=== PATIENT | female | born 1990 | race Caucasian/White ===

== ENCOUNTER 2017-04-04 18:05 | Emergency (ER) | payer SELFPAY ==
[~2017-04-04 18:05] MED LIST: MELO7.5 PO; ULTR50TA PO
--- NOTE | 2017-04-04 18:30 | PD ---
Physical Exam Time Seen by Provider: 18:29 Narrative 26 year old female presents to ED for evaluation of R hand swelling; began 3 days ago. Pt reports this has happened before with no preceding injury. Denies IVDA. Denies trauma. Pt states pain is exacerbated with movement. No fever or chills. No others symptoms Data Data Last Documented VS Vital Signs Date Time Temp Pulse Resp B/P (MAP) Pulse Ox O2 Delivery O2 Flow Rate FiO2 04/04/17 20:24 04/04/17 18:32 97.1 93 18 97 Room Air Orders Orders Hand, Complete ([id number]) (04/04/17 ) Dexamethasone Inj (Decadron Inj) (04/04/17 19:45) Splint Or Brace Apply/Monitor (04/04/17 19:44) MDM Medical Record Reviewed: Yes Supervised Visit with KATERIN: No Scripts Diclofenac Sodium DR (Diclofenac Sodium DR) 75 Mg Tabdr 75 MG PO BID, #20 TAB 0 Refills Prov: Re Crouch MD 04/04/17 Condition: Stable Erika Olmedo Apr 04, 2017 18:30
[2017-04-04 18:32] VITALS: BP 124/79; PULSE 93; RESP 18; TEMP 97.1; O2SAT 97
[2017-04-04] MEDS ORDERED: DEXAMETHASONE SOD PHOS 20 MG/5 ML VIAL IM ONE (19:45)
[2017-04-04] MEDS ORDERED: DICL75TA PO (19:46)
--- NOTE | 2017-04-04 19:50 | PD ---
HPI Chief Complaint: Injury Time Seen by Provider: 19:40 Travel History International Travel<30 days: No Contact w/Intl Traveler<30days: No Traveled to known affect area: No History of Present Illness HPI 26-year-old [id number] female presents emergency department with complaints of right hand pain and swelling over last 3 days. She states that this has happened several times over last few years. Etiology is unclear. No history trauma. She denies any numbness or tingling. She states pain is global in her hand. There is no one area which is worse than the other. She does not recall having any injury or any repetitive activity. She has not seen a primary care doctor. She states that she follow-up with her family doctor years ago but no determination was made at that time for pain. PFSH Past Medical History Medical History: Denies Significant Hx Immunizations Current: Yes Tetanus Vaccination: Unknown Influenza Vaccination: Yes ?: Unknown Menopausal: No : 3 Para: 3 Past Surgical History Section: Yes (X3) Other Surgery: Yes (C SECTION X3) Social History Alcohol Use: No Tobacco Use: No Substance Use: No Allergies-Medications (Allergen,Severity, Reaction): Coded Allergies: No Known Allergies (Verified , 04/04/17) Reported Meds & Prescriptions Reported Meds & Active Scripts Active Diclofenac Sodium DR (Diclofenac Sodium) 75 Mg Tabdr 75 Mg PO BID Mobic 7.5 Mg Tab (Meloxicam) 7.5 Mg Tab 7.5 Mg PO DAILY one po daily for inflammation. Reported Ultram (Tramadol HCl) 50 Mg Tab 50 Mg PO Q4H PRN Review of Systems Except as stated in HPI: all other systems reviewed are Neg Physical Exam Narrative GENERAL: This is a well-nourished, well-developed patient, in no apparent distress. SKIN: No rashes, ecchymoses or lesions. Warm and dry. HEAD: Atraumatic. Normocephalic. EYES: PERRL, EOMI, no discharge or injection. No scleral icterus. EARS: Clear NOSE: Nasal turbinates appear normal. THROAT: Mucosa pink and moist. Airway patent. NECK: Trachea midline. supple, moves head freely. LUNGS: Clear to auscultation. CV: Regular in rhythm. ABDOMEN: Soft nontender. EXT: No clubbing cyanosis. Examination the right hand reveals mild swelling diffusely in the hand. She has limited flexion and extension due to pain. She has intact sensation with good Refill. Intact median/ulnar/renal nurse. There is no pain in the wrist, elbow or shoulder. The skin is intact. The skin is warm. There is no abnormal color. Data Data Last Documented VS Vital Signs Date Time Temp Pulse Resp B/P (MAP) Pulse Ox O2 Delivery O2 Flow Rate FiO2 04/04/17 18:32 97.1 93 18 124/79 (94) 97 Room Air Orders Orders Hand, Complete ([id number]) (04/04/17 ) Dexamethasone Inj (Decadron Inj) (04/04/17 19:45) Splint Or Brace Apply/Monitor (04/04/17 19:44) MDM Medical Decision Making Medical Screen Exam Complete: Yes Emergency Medical Condition: Yes Medical Record Reviewed: Yes Interpretation(s) Right hand: Negative for acute bony injury. Differential Diagnosis MDM: High Differential diagnoses: Fracture, sprain, strain, dislocation, contusion, neurovascular injury, autoimmune Narrative Course The patient has pain and swelling to the right hand without injury. She has had this several times in the past over last several years. Etiology is unclear. Patient's advised to follow-up with a primary care doctor or orthopedist for further testing. Patient's given Decadron 10 mg IM and prescription for diclofenac. Ashutosh wrap applied. This is right hand pain and swelling Diagnosis Primary Impression: right hand pain and swelling Patient Instructions: General Instructions Departure Forms: Tests/Procedures, Work Release Special Instructions: No use of the right hand 5 days. Additional Instructions: Rest. Elevation. Ice for any acute swelling pain. Diclofenac. Follow-up with a primary care doctor or an orthopedist within 1 week. Return to the ER for emergencies. Med/Other Pt SpecificInfo: Prescription(s) given Scripts Diclofenac Sodium DR (Diclofenac Sodium DR) 75 Mg Tabdr 75 MG PO BID, #20 TAB 0 Refills Prov: Re Crouch MD 04/04/17 Disposition: 01 DISCHARGE HOME Condition: Stable Abhilash Paredes Apr 04, 2017 19:50
--- NOTE | 2017-04-04 20:09 | RADRPT ---
EXAM DATE/TIME: 04/04/2017 18:53 [facility] COMPARISON: No previous studies available for comparison. INDICATIONS : Right hand pain for the past few days. No prior trauma. MEDICAL HISTORY : None. SURGICAL HISTORY : None. ENCOUNTER: Initial ACUITY: 3 days PAIN SCORE: 10/10 LOCATION: Right hand. FINDINGS: Three view examination of the right hand demonstrates no soft tissue swelling, dislocation, or fractu re. The carpal bones appear intact. The interphalangeal and metacarpophalangeal joints are intact. Bony mineralization is normal. CONCLUSION: Unremarkable examination of the right hand. Jl Barroso MD on April 04, 2017 at 20:07 Board Certified Radiologist. This report was verified electronically.
== END 2017-04-04 20:35 | disposition home or self-care (01) ==
LOC: NEPK 18:05
DX: M25.541 Pain in joints of right hand (principal); M79.89 Other specified soft tissue disorders; Z79.899 Other long term (current) drug therapy
CPT/HCPCS: 73130; 96372; 99284; J1100

== ENCOUNTER 2017-11-27 20:07 | Emergency (ER) | payer SELFPAY ==
[~2017-11-27] VITALS: Ht 160 cm; Wt 65.0 kg
[~2017-11-27 20:07] MED LIST changes: +DICL75TA PO
[2017-11-27 20:48] VITALS: BP 130/80; PULSE 98; RESP 20; TEMP 97.6; O2SAT 100
--- NOTE | 2017-11-27 21:05 | PD ---
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 She states she has had burning and frequency with urination for the last 3 days. She reports that she went to [facility] 3 weeks ago and was treated presumptively for an STD and was diagnosed with bacterial vaginosis. She states she was given an injection and pills in the emergency department but did not receive a prescription. She states that she continues to have burning and irritation with the discharge. Patient's last menstrual cycle was 2 weeks ago. She states that after she was told she was positive for chlamydia her partner was tested also and then treated. They did not have any intercourse for 2 weeks after the treatment. Symptom onset was gradual, symptoms are moderate in nature. There are no alleviating factors. Patient has trialed Azo with no improvement. She reports her pain is a 5 out of 10, constant, burning and irritated feeling. PFSH Past Medical History Medical History: Denies Significant Hx Immunizations Current: Yes Tetanus Vaccination: Unknown Influenza Vaccination: Yes ?: Not LMP: 11-10-18 Menopausal: No : 3 Para: 3 Past Surgical History Section: Yes (X3) Other Surgery: Yes (C SECTION X3) Social History Alcohol Use: No Tobacco Use: No Substance Use: No Allergies-Medications (Allergen,Severity, Reaction): Coded Allergies: No Known Allergies (Verified Adverse Reaction, Unknown, 11/27/17) Reported Meds & Prescriptions Reported Meds & Active Scripts Active Doxycycline Hyclate 100 Mg Cap 100 Mg PO BID Metronidazole 500 Mg Tab 500 Mg PO BID 14 Days Review of Systems Except as stated in HPI: all other systems reviewed are Neg Genitourinary: Positive: Frequency, Dysuria, Discharge, No: Pelvic Pain Physical Exam Narrative GENERAL: Well-developed, well-nourished, alert female. Presenting in no acute distress. SKIN: Warm and dry. HEAD: Atraumatic. Normocephalic. EYES: Pupils equal and round. No scleral icterus. No injection or drainage. ENT: No nasal bleeding or discharge. Mucous membranes pink and moist. NECK: Trachea midline. No JVD. CARDIOVASCULAR: Regular rate and rhythm. RESPIRATORY: No accessory muscle use. Clear to auscultation. Breath sounds equal bilaterally. GASTROINTESTINAL: Abdomen soft, non-tender, nondistended. Hepatic and splenic margins not palpable. MUSCULOSKELETAL: Extremities without clubbing, cyanosis, or edema. No obvious deformities. GENITOURINARY: Normal external genitalia without lesions or erythema. Vaginal vault with no blood, white thick discharge noted. Cervical os was closed without drainage. Positive cervical motion tenderness. Uterus nontender and nonenlarged. Bilateral adnexa nontender without masses. NEUROLOGICAL: Awake and alert. No obvious cranial nerve deficits. Motor grossly within normal limits. Five out of 5 muscle strength in the arms and legs. Normal speech. PSYCHIATRIC: Appropriate mood and affect; insight and judgment normal. Data Data Last Documented VS Vital Signs Date Time Temp Pulse Resp B/P (MAP) Pulse Ox O2 Delivery O2 Flow Rate FiO2 11/27/17 20:48 97.6 98 20 130/80 (97) 100 Orders Orders Gc And Chlamydia Pcr (11/27/17 20:59) Wet Prep Profile (11/27/17 20:59) Urinalysis - C+S If Indicated (11/27/17 20:59) Ceftriaxone Inj (Rocephin Inj) (11/27/17 21:30) Lidocaine 1% Inj (50 Ml) (Xylocaine 1% I (11/27/17 21:30) Azithromycin (Zithromax) (11/27/17 21:30) Urine Culture (11/27/17 21:00) Labs Laboratory Tests Test 11/27/17 19:20 11/27/17 21:00 Clue Cells (Wet Prep) NONE SEEN Vaginal Trichomonas (Wet Prep) NONE SEEN Vaginal Yeast (Wet Prep) NONE SEEN Urine Color YELLOW Urine Turbidity CLOUDY Urine pH 6.5 Urine Specific [place] 1.024 Urine Protein 30 mg/dL Urine Glucose (UA) NEG mg/dL Urine Ketones NEG mg/dL Urine Occult Blood SMALL Urine Nitrite NEG Urine Bilirubin NEG Urine Urobilinogen LESS THAN 2.0 MG/DL Urine Leukocyte Esterase LARGE Urine RBC 50 /hpf Urine WBC /hpf Urine Squamous Epithelial Cells 21 /hpf Urine Transitional Epithelial Cells 1 /hpf Urine Bacteria MOD /hpf Urine Mucus FEW /lpf Microscopic Urinalysis Comment CULTURE INDICATED MDM Medical Decision Making Medical Screen Exam Complete: Yes Emergency Medical Condition: Yes Interpretation(s) Vital Signs Date Time Temp Pulse Resp B/P (MAP) Pulse Ox O2 Delivery O2 Flow Rate FiO2 11/27/17 20:48 97.6 98 20 130/80 (97) 100 Differential Diagnosis STD versus UTI versus bacterial vaginosis versus yeast infection versus PID versus other Narrative Course Patient is a well-appearing 27-year-old female presenting to the emergency department for evaluation of vaginal discharge and dysuria. Labs ordered and pending. Patient had significant cervical motion tenderness on exam. Patient will be treated empirically for chlamydia and gonorrhea while the results are pending. Additionally she will be treated as outpatient for PID with doxycycline. Wet prep is negative. Urinalysis is consistent with a urinary tract infection and will also be provided with a prescription for Keflex. Patient was encouraged to increase oral fluid intake. She was advised that she will be notified of test results when they are available if they are positive. Patient was encouraged to follow-up with a adjunct philosophy faculty or primary doctor. Additionally she can return to emergency department for any new worsening symptoms. Patient verbalized understanding of these instructions. Patient stable for discharge. Diagnosis Primary Impression: UTI (urinary tract infection) Qualified Codes: N39.0 - Urinary tract infection, site not specified; R31.9 - Hematuria, unspecified Additional Impression: PID (acute pelvic inflammatory disease) Referrals: Senior Attorney Primary Care Physician Patient Instructions: General Instructions, Pelvic Inflammatory Disease (ED), Urinary Tract Infection in Women (DC) Additional Instructions: Complete full course of antibiotics as prescribed Increase fluid intake Follow-up with a adjunct philosophy faculty or your primary doctor Return to emergency department for any new or worsening symptoms Med/Other Pt SpecificInfo: Prescription(s) given Scripts Cephalexin (Keflex) 500 Mg Cap 500 MG PO Q12H for Infection, #14 CAP 0 Refills Prov: Lesia Kuo 11/27/17 Doxycycline Hyclate (Doxycycline Hyclate) 100 Mg Cap 100 MG PO BID for Infection, #28 CAP 0 Refills Prov: Lesia Kuo 11/27/17 Disposition: 01 DISCHARGE HOME Condition: Stable Lesia Kuo November 27, 2017 21:05
[2017-11-27] MEDS ORDERED: AZITHROMYCIN 250 MG TAB PO ONE (21:30)
[2017-11-27] MEDS ORDERED: cefTRIAXone 250 MG VIAL IM ONE (21:30)
[2017-11-27] MEDS ORDERED: LIDOCAINE HCL 1% 50 ML VIAL IM ONE (21:30)
[2017-11-27] MEDS ORDERED: DOXY100C PO (21:47)
[2017-11-27] MEDS ORDERED: METR1TAB76 PO (21:47)
[2017-11-27 22:02] LABS: BACTERIA, URINE MOD /hpf; BILIRUBIN, URINE NEG (NEG); BLOOD, URINE SMALL (NEG); GLUCOSE,URINE NEG (NEG); KETONE, URINE NEG (NEG); MUCUS URINE FEW /lpf (OCC); NITRITE,URINE NEG (NEG); PH, URINE 6.5 (5.0-8.5); SQUAMOUS EPITHELIAL CELL URINE 21 /hpf (0-5); TRANSITIONAL EPI CELLS, URINE 1 /hpf; URINE COLOR YELLOW (YELLW/STRAW); URINE LEUKOCYTE ESTERASE LARGE (NEG)
[2017-11-27] MEDS ORDERED: CEPH-460 PO (22:09)
== END 2017-11-27 22:29 | disposition home or self-care (01) ==
LOC: NEPD 20:07
DX: N39.0 Urinary tract infection, site not specified (principal); N73.0 Acute parametritis and pelvic cellulitis
CPT/HCPCS: 81001; 86403; 87077; 87086; 87186; 87210; 87491; 87591; 96372; 99283; J0696